=== PATIENT | male | born 1975 | race Caucasian/White ===

== ENCOUNTER 2016-10-30 10:26 | Day surgery (SDC) | payer OTHER ==
[2016-10-29 10:48] VITALS: BMI 22.4
[~2016-10-30] VITALS: Ht 180.3 cm; Wt 73.0 kg
[2016-10-30] VITALS (12 sets, daily range): BP systolic 112–143; BP diastolic 69–89; PULSE 62–86; RESP 13–22; Ht 180.3 cm; Wt 73.0 kg
--- NOTE | 2016-10-30 07:55 | HPN ---
Date/Time of Note Date/Time of Note DATE: 10/30/16 TIME: 07:55 Interval H&P Admission Note Pt. seen H&P reviewed: No system changes TYRONE MCKEON MD Oct 30, 2016 07:55
[~2016-10-30 10:26] MED LIST: CEFAZOLIN 1 GM INJ ONE; DESFLURANE 15 MIN ONE
[2016-10-30] MEDS ORDERED: FENTAnyl 50 MCG/ML VIAL ONE ×2 (13:13→13:26)
[2016-10-30] MEDS ORDERED: MIDAZOLAM 1 MG/ML 2 ML INJ ONE (13:13)
[2016-10-30] MEDS ORDERED: PROPOFOL 20 ML ONE (13:13)
[2016-10-30] MEDS ORDERED: METOCLOPRAMIDE 10 MG INJ ONE (13:14)
[2016-10-30] MEDS ORDERED: DIPHENHYDRAMINE 50 MG INJ IV PRN (14:00)
[2016-10-30] MEDS ORDERED: HYDROmorphONE (0.2 MG/ML) 10ML SYG IV PRN ×3 (14:00)
[2016-10-30] MEDS ORDERED: ONDANSETRON 4 MG INJ IV PRN (14:00)
[2016-10-30] MEDS ORDERED: MEPERIDINE 25 MG INJ IV PRN (14:00)
[2016-10-30] MEDS ORDERED: OXYCODONE/ACETAMINOPHEN (5/325) TAB PO PRN ×2 (14:00)
[2016-10-30] MEDS ORDERED: LABETALOL HCL 20MG INJ ONE (14:42)
--- NOTE | 2016-10-30 14:59 | OPR ---
Date/Time of Note Date/Time of Note DATE: 10/30/16 TIME: 14:45 Operative Report Procedure Date: Oct 30, 2016 Preoperative Diagnosis Bladder tumor, history of gross hematuria Postoperative Diagnosis Bladder tumors and urethral tumor Operation Performed Transurethral resection of bladder tumors and of urethral tumor Surgeon Luisito Munoz Anesthesiologist: ALEENA CHUNG MD Estimated Blood Loss: 0 - 10 ml's Specimens Bladder tumors, base of bladder tumors, urethral tumor Complications: no Pt Condition Post Procedure: stable Disposition: PACU Indications Gross hematuria and bladder tumor as demonstrated on a CT scan Operative\Procedure Findings The patient was found to have 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 This tumor was obstructing the urethra. Patient did have 3 bladder tumors a large one on the left lateral wall a small one near the bladder neck on the left side and another one in the base of the bladder a small one Procedure Description The patient was brought to the operating room general anesthesia was induced. Patient was positioned in the lithotomy position. He was given 2 g of Ancef IV at the start of the procedure. Time out was done and the patient was identified by his name birthdate the procedure. The genital area was prepped and draped in the usual sterile manner then a #22 [place] cystoscope sheath was introduced under direct vision into the urethra. The urethral tumor was seen and was blocking the urethra. I used a 0.035 zip wire and advanced it into the bladder then advanced the cystoscope on it so I do not have any false passage. Once in the bladder, the bladder was inspected and the 3 tumors were visualized and pictures taken of the also I did take a picture of the urethral tube. Then I pulled back the scope and used the rigid biopsy forceps and grasped the tumor from the urethra I took one piece of it first then repeated the same thing second and the third time. I then dilated the urethral meatus with a Lizabeth dilators up to #28 [place] then I used the 16 [place] bipolar resectoscope sheath and introduced it under direct vision all the way to the bladder. The large bladder tumor was resected first and it was on the lateral wall and as I tried to use the setting for resection of bladder tumor the cutting was high and the patient was acting as he was going to jump because of the obturator stimulation I did lower the power on the cutting to 200 and still was a little high therefore I went ahead and electrocoagulated the base of the tumor and then using the loop I somehow scraped it rather than cutting it to avoid any sudden jumping of the patient and avoid any injury to his bladder. Once the tumor was all removed then I removed the other 2 tumors in fact they were too small all what they needed as electrocoagulation. Then I wanted to take a sample of the base of the large bladder tumor and at that moment I used the cutting and took 3 cuts at the base and during the last one the patient had a contraction and had little deep got into the bladder wall and I could see some fat. Then I went ahead and electrocoagulated all the bleeders in the bladder and achieved good hemostasis then I pulled the resectoscope out and reintroduced the cystoscope into the urethra and I used the Bugbee the round tip Bugbee electrode to electrocoagulated the base of the urethral tumor. The scope was then removed and a 22 [place] three-way Alatorre catheter with a 30 cc balloon was inserted into the bladder and connected to a drainage bag. The patient tolerated the procedure well and was transferred to the recovery room in a stable and satisfactory condition LUISITO MUNOZ MD Oct 30, 2016 14:58
[2016-10-30] MEDS ORDERED: HYDROCODONE/APAP (5/325) TAB PO PRN (15:00)
== END 2016-10-30 16:53 | disposition home or self-care (01) ==
LOC: SDS 10:26
PROVIDERS: ATTEND Urology
DX: C67.9 Malignant neoplasm of bladder, unspecified (principal); N34.2 Other urethritis
CPT/HCPCS: 52240; 88305; J0690; J2250; J2765; J3010; Z7512; Z7610

== ENCOUNTER 2017-04-21 10:30 | Day surgery (SDC) | END 2017-04-21 17:30 | disposition home or self-care (01) ==

== ENCOUNTER 2018-04-21 10:36 | Day surgery (SDC) | payer OTHER ==
[2018-04-20 15:45] VITALS: Ht 177.8 cm; Wt 72.0 kg
[~2018-04-21] VITALS: Ht 177.8 cm; Wt 72.0 kg
[2018-04-21] VITALS (16 sets, daily range): BP systolic 134–183; BP diastolic 77–96; PULSE 70–107; RESP 10–27
[~2018-04-21 10:36] MED LIST changes: +CEFTRIAXONE 1 GM/NS 50 ML IVPB ONE; -DESFLURANE 15 MIN ONE; +LIDOCAINE 2% (SDV) 5 ML INJ ONE; +ROCURONIUM 50 MG INJ ONE
--- NOTE | 2018-04-21 12:14 | PREAC ---
Date/Time of Note Date/Time of Note DATE: 04/21/18 TIME: 12:13 Anesthesia Eval and Record Evaluation Time Pre-Procedure Interview DATE: 04/21/18 TIME: 12:13 Age 43 Sex male NPO: 8 hrs Preoperative diagnosis Bladder Tumor Planned procedure Cystoscopy and Bladder Tumor Resection Past Medical History Past Medical History: None Surgery & Anesthesia Issues No known issue Meds Anticoagulation: No Beta Hussein within 24 hr: No Reason Beta Hussein not given: Pt. not on B-Husseni No Active Prescriptions or Reported Meds Meds reviewed: Yes Allergies Coded Allergies: No Known Allergy (Unverified , 04/21/18) Allergies Reviewed: Yes Labs/Studies Labs Reviewed: Reviewed by anesthesiologist test: N/A Studies: ECG (n/a), CXR (n/a) Pre-procedure Exam Last vitals Vital Signs Date Temp Pulse Resp B/P (MAP) Pulse Ox O2 O2 Flow FiO2 Time Delivery Rate 04/21/18 97.7 83 16 146/77 99 Room Air 11:26 (100) Airway: Adequate mouth opening, Adequate thyromental dist Mallampati: Mallampati II Teeth: Normal Lung: Normal Heart: Normal ASA Physical Status ASA physical status: 2 Emergency: None Planned Anesthetic General/MAC: LMA Planned Pain Management Parenteral pain med Pre-operative Attestations Prior to commencing anesthesia and surgery, the patient was re-evaluated, there was verification of: *The patient's identity *The results of appropriate recent lab work and preoperative vital signs *The above evaluation not changing prior to induction *Anesthetic plan, risk benefits, alternative and complications discussed with patient/family; questions answered; patient/family understands, accepts and wishes to proceed. DELON REGALADO MD Apr 21, 2018 12:14
[2018-04-21] MEDS ORDERED: PROPOFOL 20 ML ONE (12:16)
[2018-04-21] MEDS ORDERED: MIDAZOLAM 1 MG/ML 2 ML INJ ONE (12:17)
[2018-04-21] MEDS ORDERED: FENTAnyl 50 MCG/ML VIAL ONE (12:17)
[2018-04-21] MEDS ORDERED: ONDANSETRON 4 MG INJ IV PRN (12:30)
[2018-04-21] MEDS ORDERED: HYDROmorphONE 1 MG/5 ML IV SYRINGE IV PRN ×3 (12:30)
[2018-04-21] MEDS ORDERED: DIPHENHYDRAMINE 50 MG INJ IV PRN (12:30)
[2018-04-21] MEDS ORDERED: MEPERIDINE 25 MG INJ IV PRN (12:30)
[2018-04-21] MEDS ORDERED: OXYCODONE/ACETAMINOPHEN (5/325) TAB PO PRN ×2 (12:30)
[2018-04-21] MEDS ORDERED: EPHEDrine SULFATE 50 MG/5 ML SYG IV PRN (12:30)
[2018-04-21] MEDS ORDERED: LABETALOL HCL 20MG INJ IV PRN (12:30)
[2018-04-21] MEDS ORDERED: FENTAnyl 50 MCG/ML VIAL IV PRN ×3 (12:30)
[2018-04-21] MEDS ORDERED: METOCLOPRAMIDE 10 MG INJ IV PRN (12:30)
--- NOTE | 2018-04-21 12:32 | HPN ---
Date/Time of Note Date/Time of Note DATE: 04/21/18 TIME: 12:32 Interval H&P Admission Note Pt. seen H&P reviewed: No system changes TYRONE MCKEON MD Apr 21, 2018 12:32
[2018-04-21] MEDS ORDERED: ONDANSETRON 4 MG INJ ONE (13:12)
[2018-04-21] MEDS ORDERED: METOCLOPRAMIDE 10 MG INJ ONE (13:12)
[2018-04-21] MEDS ORDERED: KETOROLAC 30 MG INJ ONE (13:12)
[2018-04-21] MEDS ORDERED: DEXAMETHASONE 4 MG/ML 5 ML INJ ONE (13:12)
[2018-04-21] MEDS ORDERED: GLYCOPYRROLATE 0.4 MG INJ ONE (13:53)
[2018-04-21] MEDS ORDERED: NEOSTIGMINE 10 MG INJ ONE (13:53)
[2018-04-21] MEDS ORDERED: MEPERIDINE 100 MG INJ ONE (13:57)
--- NOTE | 2018-04-21 14:07 | PAC ---
Date/Time of Note Date/Time of Note DATE: 04/21/18 TIME: 14:06 Post-Anesthesia Notes Post-Anesthesia Note Last documented vital signs Vital Signs Date Temp Pulse Resp B/P (MAP) Pulse Ox O2 O2 Flow FiO2 Time Delivery Rate 04/21/18 98.5 83 16 146/77 99 Room Air 14:05 (100) Activity: WNL Respiratory function: WNL Cardiovascular function: WNL Mental status: Baseline Pain reasonably controlled: Yes Hydration appropriate: Yes Nausea/Vomiting absent: Yes DELON REGALADO MD Apr 21, 2018 14:06
[2018-04-21] MEDS ORDERED: LORAZEPAM 2 MG INJ ONE (14:11)
--- NOTE | 2018-04-21 14:20 | OPR ---
Date/Time of Note Date/Time of Note DATE: 04/21/18 TIME: 14:11 Operative Report Procedure Date: Apr 21, 2018 Preoperative Diagnosis Recurrent bladder tumor Postoperative Diagnosis Same Operation/Procedure Performed Transurethral resection of bladder tumor Surgeon see signature line Tool Crib Manager Sabina Trivedi Anesthesia Type: general Anesthesiologist: DELON REGALADO MD Estimated Blood Loss: minimal Transfusion none Specimen 1-bladder tumor 2-bladder neck tissue and bladder tumor Grafts/Implants none Complications none Pt Condition Post Procedure: stable Disposition: PACU Indications Recurrent bladder tumor. The tumor is located anteriorly at the bladder neck around the 11 o'clock position. Procedure Description Patient was brought to the operating room and general anesthesia was induced. Patient was positioned in the lithotomy position. He was given 2 g of Ancef IV at the start of the procedure. Timeout was done and the patient was identified by his name, birthdate and the procedure. The genital area was prepped and draped in the usual sterile manner. The urethral meatus was dilated with the [place] dilators up to 32 Bur[place]. Then the bipolar resectoscope was introduced under direct vision through the penile urethra all the way to the bladder. The bladder was inspected thoroughly but the tumor could not be seen because of its location. I tried to put the patient in full Trendelenburg and still could not see the tumor. Then I removed the resectoscope and used the flexible ureteroscope and as I got the flexible ureteroscope into the bladder I made 180 degree back curve and was able to see the tumor at the bladder neck around the 11 o'clock position and it is right on the edge of the prostate at the bladder neck. I then reintroduced the bipolar resectoscope and again to try to see if I could ,with the patient in Trendelenburg position, visualize the tumor. It was a still very difficult to see it. Then I decided to resect the bladder neck around the 11 o'clock position with the hope to expose the tumor. That allowed me indeed to see the tumor and then I did resect and electrocoagu lated the edges and the base. After that I removed the resectoscope and reintroduced the flexible cystoscope and did look again to make sure that the tumor was resected totally. Indeed the tumor was completely out and the base was well fulgurated as well as the edges I then remove the scope and emptied the bladder for him and he was transferred to the recovery room in a stable and satisfactory condition. TYRONE MCKEON MD Apr 21, 2018 14:19
[2018-04-21] MEDS ORDERED: MIDAZOLAM 1 MG/ML 2 ML INJ IV PRN (14:30)
[2018-04-21] MEDS ORDERED: HYDROCODONE/APAP (5/325) TAB PO PRN (14:30)
[2018-04-21] MEDS ORDERED: LORAZEPAM 2 MG INJ IV PRN (14:30)
[2018-04-21] MEDS ORDERED: LORAZEPAM 2 MG INJ IM ONE (15:00)
[2018-04-21] MEDS: hydrALAzine 20 MG INJ IV PRN ×2 (15:15→15:24)
== END 2018-04-21 16:58 | disposition home or self-care (01) ==
LOC: SDS 10:36
PROVIDERS: ATTEND Urology
DX: C67.9 Malignant neoplasm of bladder, unspecified (principal)
CPT/HCPCS: 52235; J0360; J0696; J1100; J1885; J2060; J2175; J2250; J2405; J2710; J2765; J3010; Z7512; Z7610; 88305; J0690